=== PATIENT | female | born 1965 | race Caucasian/White ===

== ENCOUNTER → 2016-10-18 | Outpatient (CLI) | payer BC ==
--- NOTE | 2016-10-18 21:04 | WWHP ---
DATE OF SERVICE: 10/18/2016 CHIEF COMPLAINT: Patient is here for her routine gynecologic exam and mammogram. HPI: This is a 51-year-old G3, P3 with an LMP of 2014. The patient states it has been more than 5 years since her last pelvic exam, and about 2 years since her last mammogram. She is without gynecologic complaints and denies any postmenopausal bleeding. She had occasional hot flashes, but are not very bothersome and these are much improved from the past. PAST MEDICAL HISTORY: Diverticulosis. MEDICATIONS: None. ALLERGIES: No known drug allergies. PAST SURGICAL HISTORY: tubal ligation in 1988. Colonoscopy in 2013. Past OB history: Vaginal deliveries x3. 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 SOCIAL HISTORY: She denies tobacco, alcohol, and drug use. 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 FAMILY HISTORY: Aunt had gastric cancer in her 20s and from this. Her mother had an early type of breast cancer. Mother also had diabetes. REVIEW OF SYSTEMS: Weight has been stable. She denies respiratory, cardiac, or GI problems. PHYSICAL EXAM: Blood pressure 144/89. Height 5 feet 5 inches. Weight 216 pounds. Temperature 97.6, pulse 62. This a well-developed, well-nourished white female who is alert and oriented x3 in no acute distress. HEENT is within normal limits. NECK: Supple without mass or thyromegaly. CHEST AND LUNGS: Clear to auscultation. HEART: Regular rate and rhythm. Breasts are without mass or discharge. Axillary exam is negative for adenopathy. BACK: Negative for CVA tenderness. ABDOMEN: Soft, nontender, without palpable masses. PELVIC EXAM: External genitalia reveals mild atrophy without lesions. Cervix and vagina reveal mild atrophy without lesions. Cervix is slightly stenotic. There is no evidence of prolapse. The uterus is midposition, nongravid size and nontender. There are no palpable adnexal masses or tenderness. Rectovaginal exam is negative for mass or tenderness and is negative for occult blood. EXTREMITIES: Nontender. IMPRESSION: A 51-year-old menopausal female with normal gynecologic exam. PLAN: 1. Pap smear was performed. 2. Self-breast examination was discussed. 3. Mammogram will be done today. 4. We have discussed her mildly elevated blood pressure. She will have her blood pressure checked in the near future and will follow up with Dr. Busch for any blood pressure elevations. 5. She will return in one year.
--- NOTE | 2016-10-19 08:21 | MM ---
Reason for exam: screening (asymptomatic). Last mammogram was performed 1 year and 4 months ago. History: Patient is postmenopausal. Family history of breast cancer in mother at age 68. Physical Findings: A clinical breast exam by your physician is recommended on an annual basis and results should be correlated with mammographic findings. MG Screening Mammo w CAD Bilateral CC and MLO view(s) were taken. Prior study comparison: June 16, 2015, mammogram, performed at [facility]. June 05, 2015, mammogram, performed at [facility]. April 04, 2014, mammogram, performed at [facility]. The breast tissue is almost entirely fat. Finding: There are typically benign coarse calcifications in the right breast. There is a chronic nodularity in the left breast. New finding since June 16, 2015, June 05, 2015, and April 04, 2014. ASSESSMENT: Benign, BI-RAD 2 RECOMMENDATION: Routine screening mammogram of both breasts in 1 year.
--- NOTE | 2016-10-25 20:21 | WWPLE ---
October 25, 2016 RE: Curry Phyllis Edilberto Dear Dr. Busch, I had the pleasure seeing your patient Phyllis Zapien in the office on 10/18/16. As you know, she is a 51-year-old menopausal female who presented to me for her routine gynecologic exam. Her gynecologic exam was unremarkable. Pap smear was negative and her mammogram was benign. Thank you for allowing me to participate in the care of your patient. Please do not hesitate to call if you have any questions. Sincerely, Baldev Webb M.D. [place]RIFF[place]
== END ==
LOC: WWCWWP 10:30
PROVIDERS: ATTEND Obstetrics & Gynecology
DX: Z12.31 Encounter for screening mammogram for malignant neoplasm of breast (principal)

== ENCOUNTER 2017-03-06 09:36 | Inpatient (IN) | payer BC ==
[2017-03-06] MEDS ORDERED: SODIUM CHLORIDE 0.9% 1,000 ML IV STA (10:00)
[2017-03-06] MEDS ORDERED: ONDANSETRON 4 MG/2 ML VIAL IVP STA (10:00)
[2017-03-06] MEDS ORDERED: RX INFO: IV CONTRAST WAS GIVEN 1 EACH MISC MISCELLANE PRN (10:00)
[2017-03-06] MEDS ORDERED: MORPHINE SULFATE 2 MG/ML SYRINGE IVP STA (10:00)
--- NOTE | 2017-03-06 10:04 | ED ---
Abdominal Pain HPI - General Source: patient, RN notes reviewed Mode of arrival: ambulatory Limitations: no limitations <Eddie Murphy - Last Filed: 03/06/17 12:07> <Gregorio Zambrano - Last Filed: 03/06/17 12:22> - General Chief Complaint: Abdominal Pain Stated Complaint: abdominal/chest pain, vomiting Time Seen by Provider: 03/06/17 09:54 - History of Present Illness Initial Comments: 51-year-old female presents emergency Department chief complaint abdominal pain. She states it started last night and has progressed until today. She states she has mid to right lower quadrant abdominal pain. Patient states she is now vomiting up which appears to be viral. Patient has a benign past medical history no surgeries. She denies any dysuria, hematuria, diarrhea, constipation, fever, chills, flank pain. She states the pain does radiate up to her left side towards her chest occasionally but states the pain is primarily just in her anterior abdomen region. Patient denies any sick contacts. Patient offers no complaints. (Eddie Murphy) - Related Data Home Medications Medication Instructions Recorded Confirmed Calcium Polycarbophil [Fibercon] 625 mg PO DAILY PRN 03/06/17 03/06/17 Lansoprazole [Prevacid] 15 mg PO DAILY PRN 03/06/17 03/06/17 Allergies Allergy/AdvReac Type Severity Reaction Status Date / Time No Known Allergies Allergy Verified 03/06/17 10:18 Review of Systems ROS Other: All systems not noted in ROS Statement are negative. <Eddie Murphy - Last Filed: 03/06/17 12:07> ROS Other: All systems not noted in ROS Statement are negative. <Gregorio Zambrano - Last Filed: 03/06/17 12:22> ROS Statement: Those systems with pertinent positive or pertinent negative responses have been documented in the HPI. Past Medical History Past Medical History: No Reported History History of Any Multi-Drug Resistant Organisms: None Reported Past Surgical History: Tubal Ligation Past Psychological History: No Psychological Hx Reported Smoking Status: Never smoker Past Alcohol Use History: None Reported Past Drug Use History: None Reported <Eddie Murphy - Last Filed: 03/06/17 12:07> General Exam Limitations: no limitations General appearance: alert, in no apparent distress Neck exam: Present: normal inspection, full ROM. Absent: tenderness, meningismus, lymphadenopathy Respiratory exam: Present: normal lung sounds bilaterally. Absent: respiratory distress, wheezes, rales, rhonchi, stridor Cardiovascular Exam: Present: regular rate, normal rhythm, normal heart sounds. Absent: systolic murmur, diastolic murmur, rubs, gallop, clicks GI/Abdominal exam: Present: soft, tenderness (Moderate mid to right-sided abdominal tenderness), normal bowel sounds. Absent: distended, guarding, rebound, rigid Back exam: Absent: CVA tenderness (R), CVA tenderness (L) Neurological exam: Present: alert, oriented X3, CN II-XII intact Skin exam: Present: warm, dry, intact, normal color. Absent: rash <Eddie Murphy - Last Filed: 03/06/17 12:07> Course <Eddie Murphy - Last Filed: 03/06/17 12:07> <Gregorio Zambrano - Last Filed: 03/06/17 12:22> Vital Signs 03/06/17 03/06/17 09:38 10:24 Temperature 99.9 F H Pulse Rate 76 68 Respiratory 20 15 Rate Blood Pressure 156/80 136/81 O2 Sat by Pulse 97 94 L Oximetry - Reevaluation(s) Reevaluation #1: 03/06/17 12:21 Personal [id number] evaluation the patient did discuss findings with her. Patient had the onset of pain last evening some nausea vomiting pain she localizes lower abdomen especially on the right. She has point tenderness palpation. He has had CAT scan evidence of appendicitis with elevated white count. Patient has seen Dr. Collins in the past Monday to see one of his partners. I discussed the case through an OR nurse with Dr. Simpson. Patient will be admitted. (Gregorio Zambrano) Medical Decision Making - Lab Data Result diagrams: 03/06/17 10:20 03/06/17 10:20 <Eddie Murphy - Last Filed: 03/06/17 12:07> - Lab Data Result diagrams: 03/06/17 10:20 03/06/17 10:20 <Gregorio Zambrano - Last Filed: 03/06/17 12:22> - Lab Data Lab Results 03/06/17 03/06/17 03/06/17 Range/Units 10:20 10:20 10:20 WBC 14.1 H (3.8-10.6) k/uL RBC 4.95 (3.80-5.40) m/uL Hgb 13.9 (11.4-16.0) gm/dL Hct 42.8 (34.0-46.0) % MCV 86.5 (80.0-100.0) fL MCH 28.1 (25.0-35.0) pg MCHC 32.4 (31.0-37.0) g/dL RDW 13.1 (11.5-15.5) % Plt Count 326 (150-450) k/uL Neutrophils % 89 % Lymphocytes % 6 % Monocytes % 4 % Eosinophils % 0 % Basophils % 0 % Neutrophils # 12.6 H (1.3-7.7) k/uL Lymphocytes # 0.8 L (1.0-4.8) k/uL Monocytes # 0.6 (0-1.0) k/uL Eosinophils # 0.0 (0-0.7) k/uL Basophils # 0.0 (0-0.2) k/uL Sodium 140 (137-145) mmol/L Potassium 4.0 (3.5-5.1) mmol/L Chloride 105 (98-107) mmol/L Carbon Dioxide 24 (22-30) mmol/L Anion Gap 11 mmol/L BUN 18 H (7-17) mg/dL Creatinine 0.69 (0.52-1.04) mg/dL Est GFR (MDRD) Af Amer >60 (>60 ml/min/1.73 sqM) Est GFR (MDRD) Non-Af >60 (>60 ml/min/1.73 sqM) Glucose 132 H (74-99) mg/dL Plasma Lactic Acid Ramiro 1.0 (0.7-2.0) mmol/L Calcium 9.4 (8.4-10.2) mg/dL Total Bilirubin 0.8 (0.2-1.3) mg/dL AST 22 (14-36) U/L ALT 33 (9-52) U/L Alkaline Phosphatase 81 (38-126) U/L Troponin I (0.000-0.034) ng/mL Total Protein 7.3 (6.3-8.2) g/dL Albumin 4.2 (3.5-5.0) g/dL Amylase <30 L (30-110) U/L Lipase 51 (23-300) U/L Urine Color Urine Appearance (Clear) Urine pH (5.0-8.0) Ur Specific [place] (1.001-1.035) Urine Protein (Negative) Urine Glucose (UA) (Negative) Urine Ketones (Negative) Urine Blood (Negative) Urine Nitrite (Negative) Urine Bilirubin (Negative) Urine Urobilinogen (<2.0) mg/dL Ur Leukocyte Esterase (Negative) 03/06/17 03/06/17 Range/Units 10:20 11:21 WBC (3.8-10.6) k/uL RBC (3.80-5.40) m/uL Hgb (11.4-16.0) gm/dL Hct (34.0-46.0) % MCV (80.0-100.0) fL MCH (25.0-35.0) pg MCHC (31.0-37.0) g/dL RDW (11.5-15.5) % Plt Count (150-450) k/uL Neutrophils % % Lymphocytes % % Monocytes % % Eosinophils % % Basophils % % Neutrophils # (1.3-7.7) k/uL Lymphocytes # (1.0-4.8) k/uL Monocytes # (0-1.0) k/uL Eosinophils # (0-0.7) k/uL Basophils # (0-0.2) k/uL Sodium (137-145) mmol/L Potassium (3.5-5.1) mmol/L Chloride (98-107) mmol/L Carbon Dioxide (22-30) mmol/L Anion Gap mmol/L BUN (7-17) mg/dL Creatinine (0.52-1.04) mg/dL Est GFR (MDRD) Af Amer (>60 ml/min/1.73 sqM) Est GFR (MDRD) Non-Af (>60 ml/min/1.73 sqM) Glucose (74-99) mg/dL Plasma Lactic Acid Ramiro (0.7-2.0) mmol/L Calcium (8.4-10.2) mg/dL Total Bilirubin (0.2-1.3) mg/dL AST (14-36) U/L ALT (9-52) U/L Alkaline Phosphatase (38-126) U/L Troponin I <0.012 (0.000-0.034) ng/mL Total Protein (6.3-8.2) g/dL Albumin (3.5-5.0) g/dL Amylase (30-110) U/L Lipase (23-300) U/L Urine Color Light Yellow Urine Appearance Clear (Clear) Urine pH 6.5 (5.0-8.0) Ur Specific [place] 1.032 (1.001-1.035) Urine Protein Negative (Negative) Urine Glucose (UA) Negative (Negative) Urine Ketones Negative (Negative) Urine Blood Negative (Negative) Urine Nitrite Negative (Negative) Urine Bilirubin Negative (Negative) Urine Urobilinogen <2.0 (<2.0) mg/dL Ur Leukocyte Esterase Negative (Negative) 03/06/17 10:20 EKG performed at 9:50 normal sinus rhythm with left axis deviation 69 rate OH interval 168 QRS duration 128 QT/QTC 436/467 (Eddie Murphy) Disposition <Eddie Murphy - Last Filed: 03/06/17 12:07> <Gregorio Zambrano - Last Filed: 03/06/17 12:22> Clinical Impression: Acute appendicitis Disposition: ADMITTED IP TO THIS HOSP Condition: Stable Referrals: Phyllis Daniels MD [Primary Care Provider] - 1-2 days
[2017-03-06 10:40] LABS: Basophils % (A) 0 %; CHCM 33.7; Eosinophils % (A) 0 %; HCT 42.8 % (34.0-46.0); HDW 2.36; HGB 13.9 gm/dL (11.4-16.0); Luc # (Auto) 0.07; Luc % (Auto) 1; Lymphocytes # (A) 0.8 k/uL (1.0-4.8); Lymphocytes % (A) 6 %; MCH 28.1 pg (25.0-35.0); MCHC 32.4 g/dL (31.0-37.0); MCV 86.5 fL (80.0-100.0); Mean Platelet Volume 7.3; Monocytes # (A) 0.6 k/uL (0-1.0); Monocytes % (A) 4 %; Neutrophils # (A) 12.6 k/uL (1.3-7.7); Neutrophils % (A) 89 %; RBC 4.95 m/uL (3.80-5.40); RDW 13.1 % (11.5-15.5); WBC 14.1 k/uL (3.8-10.6); WBC (Perox) 14.15
[2017-03-06 10:48] LABS: ALT 33 U/L (9-52); AST 22 U/L (14-36); Alkaline Phosphatase 81 U/L (38-126); Amylase <30 U/L (30-110); Anion Gap 11 mmol/L; Blood Urea Nitrogen 18 mg/dL (7-17); Calcium 9.4 mg/dL (8.4-10.2); Carbon Dioxide 24 mmol/L (22-30); Chloride 105 mmol/L (98-107); Glucose 132 mg/dL (74-99); Non-African American GFR(MDRD) >60 (>60 ml/min/1.73 sqM); Sodium 140 mmol/L (137-145); Total Bilirubin 0.8 mg/dL (0.2-1.3); Total Protein 7.3 g/dL (6.3-8.2)
--- NOTE | 2017-03-06 11:10 | CT ---
EXAMINATION TYPE: CT abdomen pelvis w con DATE OF EXAM: 03/06/2017 COMPARISON: NONE HISTORY: LUQ AND LLQ PAIN, VOMITTING FOR ONE DAY CT DLP: 1636 mGycm Automated exposure control for dose reduction was used. CONTRAST: CT scan of the abdomen pelvis is performed with IV Contrast, patient injected with 100 ML mL of Omnip aque 300. FINDINGS- LUNG BASES-subsegmental linear changes most typical scar or atelectasis at both lung bases. There is a hiatal hernia.. LIVER/GB- No gross abnormality is appreciated. PANCREAS- No gross abnormality is seen. SPLEEN- No gross abnormality is seen. ADRENALS- No gross abnormality is seen. KIDNEYS/BLADDER-4 mm nonobstructing right renal calculus. Hypodense lesion involving the upper pole t he right kidney measures 14 Hounsfield units suggestive of simple cyst. Larger 3 cm lesion involving the left kidney measures 1 Hounsfield units compatible simple cyst. BOWEL-there is a thick walled tubular structure within the right lower quadrant. It has a blind termi nation with mild adjacent inflammatory change. Correlate for appendicitis. LYMPH NODES- No greater than 1cm abdominal or pelvic lymph nodes areappreciated. OSSEOUS STRUCTURES- No significant abnormality is seen. IMPRESSION- 1. Correlate for acute appendicitis. 2. Diverticulosis 3. Nonobstructing renal stone the right measuring 4 mm
[2017-03-06] MEDS ORDERED: PIPERACILLIN-TAZOBACTAM 3.375 GM in DEXTROSE/WATER 1 50ML.BAG IVPB STA (11:25)
[2017-03-06 11:58] LABS: Appearance,Urine Clear (Clear); Bilirubin,Urine Negative (Negative); Glucose,Urine (UA) Negative (Negative); Ketones,Urine Negative (Negative); Leukocyte Esterase,Urine Negative (Negative); Nitrite,Urine Negative (Negative); PH, Urine 6.5 (5.0-8.0); Protein,Urine Negative (Negative); Specific Gravity,Urine 1.032 (1.001-1.035); UA Billing (MACRO vs. MICRO) CHEM; Urobilinogen,Urine <2.0 mg/dL (<2.0)
[2017-03-06] MEDS ORDERED: ONDANSETRON 4 MG/2 ML VIAL IVP PRN (12:08)
[2017-03-06] MEDS ORDERED: MORPHINE SULFATE 4 MG/ML SYRINGE IV PRN (12:08)
[2017-03-06] MEDS ORDERED: NALOXONE 0.4 MG/ML 1 ML VIAL IV PRN (12:08)
[2017-03-06] MEDS: SODIUM CHLORIDE 0.9% 1,000 ML IV SCH (15:34)
[2017-03-07] MEDS: SODIUM CHLORIDE 0.9% 1,000 ML IV SCH (04:21)
--- NOTE | 2017-03-07 07:45 | P.GSHP ---
History of Present Illness H&P Date: 03/06/17 CHIEF COMPLAINT: Right lower quadrant abdominal pain with appendicitis for 1 day. HISTORY OF PRESENT ILLNESS: The patient is a previously healthy 51-year-old female who presents with 1.5 day history of periumbilical with right lower quadrant abdominal pain that started last night. She reports intractable nausea and vomiting hence her presentation to the emergency room. CT of the abdomen and pelvis consistent with acute appendicitis. PAST MEDICAL HISTORY: See list PAST SURGICAL HISTORY: See list CURRENT MEDICATIONS: See list ALLERGIES: NKDA SOCIAL HISTORY: Non-tobacco user. . FAMILY HISTORY: Denies Crohns disease and ulcerative colitis. REVIEW OF ORGAN SYSTEMS: CONSTITUTIONAL: Denies any fever or chills. Denies recent weight loss. HEENT: Denies any trouble with vision, hearing or nosebleeds. No difficulty swallowing. LYMPHATIC: The patient denies any lumps and bumps around the neck. ENDOCRINE: Denies any thyroid disorders. Denies any blood sugar glucose intolerance. RESPIRATORY: Denies shortness of breath including chronic cough. CARDIOVASCULAR: Denies history of chest pain with exertion. GASTROINTESTINAL: Denies regurgitation of bile at night as well as intermittent nausea. No blood in stools. GENITOURINARY: Denies any blood in urine or increased urinary frequency. MUSCULOSKELETAL: Denies current joint arthritis. NEUROLOGIC: Denies any numbness or tingling along the distal extremities. No seizure disorders or headaches. PSYCHIATRIC: Denies any depression or suicidal ideation. HEMATOLOGIC: Denies any abnormal bleeding or bruising. PHYSICAL EXAMINATION: Vital signs: Vital Signs Temp 98.1 F 03/06/17 19:53 Pulse 77 03/06/17 19:53 Resp 20 03/07/17 00:00 BP 115/66 03/06/17 19:53 Pulse Ox 97 03/06/17 19:53 Intake & Output 03/06/17 03/07/17 03/07/17 18:59 06:59 18:59 Intake Total 300 Balance 300 Weight 95.2 kg 95.2 kg Intake: Oral 300 Other: # Voids 1 2 GENERAL: Well developed and in no acute distress. Pleasant. HEENT: No sclera icterus. Extraocular movements grossly intact. Moist buccal mucosa. Head is atraumatic, normocephalic. Hears conversational speech. No nasal drainage. NECK: Supple without lymphadenopathy. No JV distention. CHEST: Non-labored respirations and equal bilateral excursions. CARDIOVASCULAR: Regular rate and rhythm. Palpable 2+ radial pulses. ABDOMEN: Soft, tender at the right lower quadrant. MUSCULOSKELETAL: No clubbing, cyanosis or edema. NEUROLOGIC: No focal or lateralizing signs. PSYCH: Appropriate affect. Alert and oriented to person, place and time. LABS: Laboratory Last Values WBC 14.1 k/uL (3.8-10.6) H 03/06/17 10:20 RBC 4.95 m/uL (3.80-5.40) 03/06/17 10:20 Hgb 13.9 gm/dL (11.4-16.0) 03/06/17 10:20 Hct 42.8 % (34.0-46.0) 03/06/17 10:20 MCV 86.5 fL (80.0-100.0) 03/06/17 10:20 MCH 28.1 pg (25.0-35.0) 03/06/17 10:20 MCHC 32.4 g/dL (31.0-37.0) 03/06/17 10:20 RDW 13.1 % (11.5-15.5) 03/06/17 10:20 Plt Count 326 k/uL (150-450) 03/06/17 10:20 Neutrophils % 89 % 03/06/17 10:20 Lymphocytes % 6 % 03/06/17 10:20 Monocytes % 4 % 03/06/17 10:20 Eosinophils % 0 % 03/06/17 10:20 Basophils % 0 % 03/06/17 10:20 Neutrophils # 12.6 k/uL (1.3-7.7) H 03/06/17 10:20 Lymphocytes # 0.8 k/uL (1.0-4.8) L 03/06/17 10:20 Monocytes # 0.6 k/uL (0-1.0) 03/06/17 10:20 Eosinophils # 0.0 k/uL (0-0.7) 03/06/17 10:20 Basophils # 0.0 k/uL (0-0.2) 03/06/17 10:20 Sodium 140 mmol/L (137-145) 03/06/17 10:20 Potassium 4.0 mmol/L (3.5-5.1) 03/06/17 10:20 Chloride 105 mmol/L (98-107) 03/06/17 10:20 Carbon Dioxide 24 mmol/L (22-30) 03/06/17 10:20 Anion Gap 11 mmol/L 03/06/17 10:20 BUN 18 mg/dL (7-17) H 03/06/17 10:20 Creatinine 0.69 mg/dL (0.52-1.04) 03/06/17 10:20 Est GFR (MDRD) Af Amer >60 (>60 ml/min/1.73 sqM) 03/06/17 10:20 Est GFR (MDRD) Non-Af >60 (>60 ml/min/1.73 sqM) 03/06/17 10:20 Glucose 132 mg/dL (74-99) H 03/06/17 10:20 Plasma Lactic Acid Ramiro 1.0 mmol/L (0.7-2.0) 03/06/17 10:20 Calcium 9.4 mg/dL (8.4-10.2) 03/06/17 10:20 Total Bilirubin 0.8 mg/dL (0.2-1.3) 03/06/17 10:20 AST 22 U/L (14-36) 03/06/17 10:20 ALT 33 U/L (9-52) 03/06/17 10:20 Alkaline Phosphatase 81 U/L (38-126) 03/06/17 10:20 Troponin I <0.012 ng/mL (0.000-0.034) 03/06/17 10:20 Total Protein 7.3 g/dL (6.3-8.2) 03/06/17 10:20 Albumin 4.2 g/dL (3.5-5.0) 03/06/17 10:20 Amylase <30 U/L (30-110) L 03/06/17 10:20 Lipase 51 U/L (23-300) 03/06/17 10:20 Urine Color Light Yellow 03/06/17 11:21 Urine Appearance Clear (Clear) 03/06/17 11:21 Urine pH 6.5 (5.0-8.0) 03/06/17 11:21 Ur Specific [place] 1.032 (1.001-1.035) 03/06/17 11:21 Urine Protein Negative (Negative) 03/06/17 11:21 Urine Glucose (UA) Negative (Negative) 03/06/17 11:21 Urine Ketones Negative (Negative) 03/06/17 11:21 Urine Blood Negative (Negative) 03/06/17 11:21 Urine Nitrite Negative (Negative) 03/06/17 11:21 Urine Bilirubin Negative (Negative) 03/06/17 11:21 Urine Urobilinogen <2.0 mg/dL (<2.0) 03/06/17 11:21 Ur Leukocyte Esterase Negative (Negative) 03/06/17 11:21 Urine HCG, Qual Not Detected (Not Detectd) 03/06/17 11:21 STUDIES: CT of the abdomen and pelvis reviewed with findings consistent with appendicitis. ASSESSMENT: 1. Right lower quadrant pain. 2. Appendicitis. 3. Leukocytosis. PLAN: 1. I have discussed benefits and risks of laparoscopic appendectomy. 2. Antiemetics to avoid postop nausea or vomiting. 3. Antibiotics, Unasyn 4. DVT prophylaxis with heparin. 5. GI prophylaxis. 6. Off work restrictions and recovery anticipated for 1 to 2 weeks. Thank you very much for allowing me to participate in the care of your patient. Past Medical History Past Medical History: GERD/Reflux, Pneumonia, Renal Disease Additional Past Medical History / Comment(s): Pneumonia/intubated and vented, diverticular dx, hiatal hernia, arthritis bilateral knees, nephrolithiasis-pt passed stones on her own. History of Any Multi-Drug Resistant Organisms: None Reported Past Surgical History: Orthopedic Surgery, Tubal Ligation Additional Past Surgical History / Comment(s): R knee arthroscopy, EGD/ colonoscopy Past Anesthesia/Blood Transfusion Reactions: No Reported Reaction Smoking Status: Never smoker - Past Family History Father Family Medical History: COPD, Coronary Artery Disease (CAD) Additional Family Medical History / Comment(s): Father in his mid 60's Mother Family Medical History: Cancer, Diabetes Mellitus Additional Family Medical History / Comment(s): Mother had skin and breast cancer. Medications and Allergies Home Medications Medication Instructions Recorded Confirmed Type Calcium Polycarbophil [Fibercon] 625 mg PO DAILY PRN 03/06/17 03/06/17 History Lansoprazole [Prevacid] 15 mg PO DAILY PRN 03/06/17 03/06/17 History Allergies Allergy/AdvReac Type Severity Reaction Status Date / Time No Known Allergies Allergy Verified 03/06/17 10:18 Surgical - Exam Vital Signs Temp Pulse Resp BP Pulse Ox 99.9 F H 76 20 156/80 97 03/06/17 09:38 03/06/17 09:38 03/06/17 09:38 03/06/17 09:38 03/06/17 09:38 Results - Labs 03/06/17 10:20 03/06/17 10:20 Abnormal Lab Results - Last 24 Hours (Table) 03/06/17 03/06/17 Range/Units 10:20 10:20 WBC 14.1 H (3.8-10.6) k/uL Neutrophils # 12.6 H (1.3-7.7) k/uL Lymphocytes # 0.8 L (1.0-4.8) k/uL BUN 18 H (7-17) mg/dL Glucose 132 H (74-99) mg/dL Amylase <30 L (30-110) U/L Diabetes panel 03/06/17 Range/Units 10:20 Sodium 140 (137-145) mmol/L Potassium 4.0 (3.5-5.1) mmol/L Chloride 105 (98-107) mmol/L Carbon Dioxide 24 (22-30) mmol/L BUN 18 H (7-17) mg/dL Creatinine 0.69 (0.52-1.04) mg/dL Glucose 132 H (74-99) mg/dL Calcium 9.4 (8.4-10.2) mg/dL AST 22 (14-36) U/L ALT 33 (9-52) U/L Alkaline Phosphatase 81 (38-126) U/L Total Protein 7.3 (6.3-8.2) g/dL Albumin 4.2 (3.5-5.0) g/dL Calcium panel 03/06/17 Range/Units 10:20 Calcium 9.4 (8.4-10.2) mg/dL Albumin 4.2 (3.5-5.0) g/dL Pituitary panel 03/06/17 Range/Units 10:20 Sodium 140 (137-145) mmol/L Potassium 4.0 (3.5-5.1) mmol/L Chloride 105 (98-107) mmol/L Carbon Dioxide 24 (22-30) mmol/L BUN 18 H (7-17) mg/dL Creatinine 0.69 (0.52-1.04) mg/dL Glucose 132 H (74-99) mg/dL Calcium 9.4 (8.4-10.2) mg/dL Adrenal panel 03/06/17 Range/Units 10:20 Sodium 140 (137-145) mmol/L Potassium 4.0 (3.5-5.1) mmol/L Chloride 105 (98-107) mmol/L Carbon Dioxide 24 (22-30) mmol/L BUN 18 H (7-17) mg/dL Creatinine 0.69 (0.52-1.04) mg/dL Glucose 132 H (74-99) mg/dL Calcium 9.4 (8.4-10.2) mg/dL Total Bilirubin 0.8 (0.2-1.3) mg/dL AST 22 (14-36) U/L ALT 33 (9-52) U/L Alkaline Phosphatase 81 (38-126) U/L Total Protein 7.3 (6.3-8.2) g/dL Albumin 4.2 (3.5-5.0) g/dL
--- NOTE | 2017-03-07 07:46 | P.HPADDEND ---
H&P Addendum H&P Addendum Date: 03/07/17 Patient comes in with history of acute appendicitis. We'll proceed with laparoscopic appendectomy today.
[2017-03-07] MEDS ORDERED: IV FLUID CONTINUATION 1,000 ML IV ONE (11:30)
[2017-03-07] MEDS ORDERED: HEPARIN SODIUM,PORCINE 5,000 UNIT/ML 1 ML VIAL SQ ONE (11:54)
[2017-03-07] MEDS ORDERED: ONDANSETRON 4 MG/2 ML VIAL IVP ONE (11:55)
[2017-03-07] MEDS ORDERED: DEXAMETHASONE SOD PHOSPHATE 10 MG/ML 1 ML VIAL IV ONE (11:56)
[2017-03-07] MEDS ORDERED: fentaNYL (PF) 50 MCG/ML 2 ML AMP ONE (13:59)
[2017-03-07] MEDS ORDERED: GLYCOPYRROLATE 0.2 MG/ML 2 ML VIAL ONE (13:59)
[2017-03-07] MEDS ORDERED: SUCCINYLCHOLINE CHLORIDE 100 MG/5 ML SYR IV ONE (13:59)
[2017-03-07] MEDS ORDERED: ONDANSETRON 4 MG/2 ML VIAL ONE (13:59)
[2017-03-07] MEDS ORDERED: ROCURONIUM BROMIDE 10 MG/ML 10 ML VIAL IV ONE (13:59)
[2017-03-07] MEDS ORDERED: PROPOFOL 10 MG/ML 20 ML VIAL IV ONE (13:59)
[2017-03-07] MEDS ORDERED: NEOSTIGMINE 1 MG/ML 10 ML VIAL ONE (13:59)
[2017-03-07] MEDS ORDERED: MIDAZOLAM 2 MG/2 ML VIAL ONE (13:59)
[2017-03-07] MEDS ORDERED: BUPIVACAIN-EPI 0.25%-1:200,000 30 ML VIAL SQ ONE (14:01)
[2017-03-07] MEDS ORDERED: LACTATED RINGERS 1,000 ML IV ONE (14:08)
[2017-03-07] MEDS: HYDROmorphone 1 MG/ML 1 ML SYRINGE IVP ONE ×2 (14:51→14:56)
--- NOTE | 2017-03-07 14:55 | P.PCN ---
Date of Procedure: 03/07/17 Preoperative Diagnosis: Acute appendicitis Postoperative Diagnosis: Acute appendicitis Procedure(s) Performed: Laparoscopic appendectomy Implants: Anesthesia: GETA, local Surgeon: Brittni Nguyen Estimated Blood Loss (ml): 5 Pathology: other (Acute appendicitis) Condition: stable Disposition: floor Indications for Procedure: Operative Findings: Nonperforated acute appendicitis with periappendicitis. Description of Procedure:
[2017-03-07] MEDS: MEPERIDINE 50 MG/ML SYRINGE IVP ONE ×2 (14:59→15:07)
[2017-03-07] MEDS ORDERED: KETOROLAC 30 MG/ML 1 ML VIAL IVP ONE (15:07)
[2017-03-07] MEDS ORDERED: HYDROmorphone 1 MG/ML 1 ML SYRINGE IVP ONE (15:16)
[2017-03-07] MEDS: PIPERACILLIN-TAZOBACTAM 3.375 GM in DEXTROSE/WATER 1 50ML.BAG IVPB SCH ×2 (16:15→23:56)
[2017-03-07] MEDS: HYDROcodone/APAP 5-325MG 1 EACH TAB PO PRN (20:49)
[2017-03-08 06:05] LABS: Basophils % (A) 0 %; CH 28.7; CHCM 33.2; Eosinophils % (A) 0 %; HCT 33.6 % (34.0-46.0); HDW 2.37; HGB 11.4 gm/dL (11.4-16.0); Luc # (Auto) 0.13; Luc % (Auto) 1; Lymphocytes # (A) 1.4 k/uL (1.0-4.8); Lymphocytes % (A) 15 %; MCH 29.5 pg (25.0-35.0); MCV 86.9 fL (80.0-100.0); Mean Platelet Volume 7.8; Monocytes # (A) 0.5 k/uL (0-1.0); Monocytes % (A) 5 %; Neutrophils # (A) 7.4 k/uL (1.3-7.7); Neutrophils % (A) 78 %; RBC 3.87 m/uL (3.80-5.40); WBC 9.4 k/uL (3.8-10.6)
[2017-03-08] MEDS: SODIUM CHLORIDE 0.9% 1,000 ML IV SCH (06:44)
[2017-03-08] MEDS: PIPERACILLIN-TAZOBACTAM 3.375 GM in DEXTROSE/WATER 1 50ML.BAG IVPB SCH (08:11)
[2017-03-08] MEDS: HYDROcodone/APAP 5-325MG 1 EACH TAB PO PRN ×2 (08:21→11:35)
[2017-03-08] MEDS ORDERED: PANTOPRAZOLE 40 MG/10 ML VIAL IV SCH (09:00)
[2017-03-08 10:06] VITALS: BP 113/60; PULSE 61; RESP 16; TEMP 97.1
--- NOTE | 2017-03-08 14:17 | P.DS ---
Providers Date of admission: 03/06/17 13:19 Expected date of discharge: 03/08/17 Attending physician: Brittni Nguyen [facility] 51-year-old female presented to the emergency room with a chief complaint of developing right lower quadrant abdominal pain a day and a half ago. Patient had pain in the Umbilical area radiating to the right lower quadrant. Patient stated it was associated with intractable nausea vomiting and inability to keep fluids down. Patient came into the emergency room to be evaluated for the above-mentioned symptoms. CAT scan of the abdomen pelvis was consistent with acute appendicitis. Dr. Simpson did discuss the benefits and risk of proceeding with a surgical approach to address the acute appendicitis the patient elected to proceed on March 07 did undergo laparoscopic appendectomy for acute appendicitis Postprocedure patient did develop on the right shoulder area a firm slightly swollen cyst no redness around the site tenderness in the center patient states she has had no prior cyst applying heat to the area did help was no break in skin integrity Impression discharge diagnosis Present on admission right lower quadrant abdominal pain suspect due to acute appendicitis Present on admission intractable nausea vomiting right lower quadrant pain suspect due to acute appendicitis postop laparoscopic appendectomy nonperforated done on 03/07/2017 Nonperforated acute appendicitis with periappendicitis. The above dictated assessment and findings were discussed with dr Nguyen. Impression and the plan of care have been dictated as directed. Yessy Marte nurse practitioner acting as a scribe for Dr. Nguyen Patient Condition at Discharge: Stable Plan - Discharge Summary New Discharge Prescriptions: New Ibuprofen [Motrin] 200 mg PO Q6HR PRN #30 tab PRN Reason: Mild To Moderate Pain Acetaminophen Tab [Tylenol Tab] 650 mg PO Q4H #30 tablet Continue Lansoprazole [Prevacid] 15 mg PO DAILY PRN PRN Reason: GERD Calcium Polycarbophil [Fibercon] 625 mg PO DAILY PRN PRN Reason: Constipation Discharge Medication List Calcium Polycarbophil [Fibercon] 625 mg PO DAILY PRN 03/06/17 [History] Lansoprazole [Prevacid] 15 mg PO DAILY PRN 03/06/17 [History] Acetaminophen Tab [Tylenol Tab] 650 mg PO Q4H #30 tablet 03/08/17 [Rx] Ibuprofen [Motrin] 200 mg PO Q6HR PRN #30 tab 03/08/17 [Rx] Follow up Appointment(s)/Referral(s): Brittni Nguyen MD [STAFF PHYSICIAN] - 03/09/17 4:30 pm Phyllis Daniels MD [Primary Care Provider] - 1-2 days Activity/Diet/Wound Care/Special Instructions: No lifting over 10 pounds Off work restriction and recovery anticipated 1-2 weeks Discharge Disposition: HOME SELF-CARE
--- NOTE | 2017-03-20 14:54 | P.OP ---
Date of Procedure: 03/07/17 Preoperative Diagnosis: Postoperative Diagnosis: Procedure(s) Performed: Implants: Indications for Procedure: Operative Findings: Description of Procedure: SURGEON: MARCELL CHAVARRIA MD SIMULATION ANALYST: None. PREOPERATIVE DIAGNOSES: 1. Right lower quadrant abdominal pain. 2. Acute appendicitis. 3. Gastroesophageal reflux disease. 4. Leukocytosis. 5. Morbid obesity due to excess calories. 6. Body mass index 34.9. POSTOPERATIVE DIAGNOSES: 1. Right lower quadrant abdominal pain. 2. Acute appendicitis without rupture. 3. Gastroesophageal reflux disease. 4. Leukocytosis. 5. Morbid obesity due to excess calories. 6. Body mass index 34.9. PROCEDURES PERFORMED: 1. Diagnostic laparoscopy. 2. Laparoscopic appendectomy. ANESTHESIA: General with 30 mL 0.25% Marcaine with epinephrine. ESTIMATED BLOOD LOSS: 5 mL. SPECIMENS REMOVED: Appendix. COMPLICATIONS: None. OPERATIVE FINDINGS: 1. Nonperforated acute appendicitis with periappendicitis. 2. Cecum unremarkable. 3. Small bowel unremarkable. INDICATIONS: The patient is a 51-year-old female who presents with over 24-hour history of right lower quadrant abdominal pain. She reported nausea, including anorexia. CT of the abdomen and pelvis was obtained demonstrating findings consistent with acute appendicitis. Benefits and risks, including possibility of open technique were described at length. Informed consent was obtained. DESCRIPTION OR PROCEDURE: Patient was brought to the operating room, laid in supine position. After general induction, the abdomen was prepped and draped in standard sterile fashion. Prior to incision, a timeout protocol was confirmed with surgical team regarding patient's name including procedure to be performed. Preoperative medications were given intraoperatively. Additionally, bilateral SCDs including heparin 5000 units was administered. A transverse infraumbilical incision was made after localizing the skin with anesthetic. A 0 degree 12 mm laparoscopic trocar entry was performed and entered into the peritoneal cavity. The abdomen was insufflated to 15 mmHg of pressure, which she tolerated well. Diagnostic laparoscopy demonstrated no injury to bowel, viscera or mesentery. A 5 mm port was placed just above the pubis. A separate 5 mm port was placed at the left lower quadrant all under direct visualization. The patient was placed in Trendelenburg position with the right side up. A systematic view within the abdominal cavity was started with the small bowel which was unremarkable. The gallbladder was unremarkable. The base of the cecum was without inflammation. The proximal appendix was dilated consistent with acute appendicitis including periappendicitis. No inguinal hernias were identified. A 60 mm Endo CRISTINA echelon stapler was fired across using a ramsey vascular load. The staple line was completely hemostatic. The specimen was removed from the abdominal cavity with a Endo Catch bag through the 12 mm trocar. All instruments and pneumoperitoneum were evacuated from the abdominal cavity. The fascial defect was reapproximated using 0 Vicryl in a figure-of-8 fashion. A total of 30 mL 0.25% Marcaine with epinephrine was infiltrated in all wounds for postop analgesia. Dermabond was applied to the skin after reapproximating the incisions with 4-0 Monocryl as described. At the end of the procedure, needle, sponge, and instrument count was verified correct by rn neurosurgical. The patient had tolerated the procedure well, was taken to the postanesthesia care unit in stable condition.
== END 2017-03-08 14:42 | disposition home or self-care (01) | DRG 343 ==
LOC: EC 09:36 → 6PED 13:19
PROVIDERS: ADMIT Surgery Plastic and Reconstructive Surgery; ATTEND Surgery Plastic and Reconstructive Surgery
PROC: 0DTJ4ZZ Resection of Appendix, Percutaneous Endoscopic Approach (ICD-10-PCS; principal; 2017-03-06)
DX: K35.80 Unspecified acute appendicitis (principal); E66.01 Morbid (severe) obesity due to excess calories; K21.9 Gastro-esophageal reflux disease without esophagitis; K44.9 Diaphragmatic hernia without obstruction or gangrene; M17.0 Bilateral primary osteoarthritis of knee; Z68.34 Body mass index [BMI] 34.0-34.9, adult; Z87.442 Personal history of urinary calculi
CPT/HCPCS: 36415; 74177; 80053; 81003; 81025; 82150; 83605; 83690; 84484; 85025; 87040; 88304; 93005; 96361; 96365; 96366; 96375; 99285

== ENCOUNTER → 2018-11-29 | Outpatient (CLI) | payer BC ==
--- NOTE | 2018-11-30 10:00 | MM ---
Reason for exam: screening (asymptomatic). Last mammogram was performed 2 years and 1 month ago. History: Patient is postmenopausal. Family history of breast cancer in mother at age 68. Physical Findings: A clinical breast exam by your physician is recommended on an annual basis and results should be correlated with mammographic findings. MG Screening Mammo w CAD Bilateral CC and MLO view(s) were taken. Prior study comparison: October 18, 2016, bilateral MG screening mammo w CAD. June 16, 2015, mammogram, performed at [facility]. There are scattered fibroglandular densities. No significant changes when compared with prior studies. ASSESSMENT: Benign, BI-RAD 2 RECOMMENDATION: Routine screening mammogram of both breasts in 1 year.
== END ==
LOC: RADMAMWWP 10:55
PROVIDERS: ATTEND Family Medicine
DX: Z12.31 Encounter for screening mammogram for malignant neoplasm of breast (principal)
CPT/HCPCS: 77067

== ENCOUNTER → 2018-12-26 | Outpatient (CLI) | payer BC | END | disposition home or self-care (01) | LOC: LABPAT 12:16 | PROVIDERS: ATTEND Orthopaedic Surgery | DX: Z01.812 Encounter for preprocedural laboratory examination (principal) | CPT/HCPCS: 87070 ==

== ENCOUNTER → 2019-01-08 | Outpatient (CLI) | payer BC ==
[~2019-01-08] MED LIST: REGADENOSON 0.4 MG/5 ML SYRINGE IV ONE
--- NOTE | 2019-01-08 12:45 | NM ---
EXAMINATION TYPE: NM stress lexiscan cardiolite DATE OF EXAM: 01/08/2019 COMPARISON: NONE HISTORY: Precordial chest pain and abnormal EKG TECHNIQUE: After the intravenous administration of 10.02 mCi Tc 99m Sestamibi - Cardiolite resting S PECT images acquired 55 minutes post injection. The patient received 0.4mg Lexiscan, 25.9 mCi Tc 99m Sestamibi - Stress images obtained [address] injection FINDINGS: Review of stress and rest SPECT images demonstrates fixed defect anteroseptal wall. The other appears to be decreased perfusion on stress images involving the anteroapical wall which may reflect a degre e of stress-induced ischemia. Gated analysis shows normal wall motion with an estimated left ventricu lar ejection fraction of 58 %. IMPRESSION: Moderate sized area of fixed defect involving the anteroseptal wall. There appears to be a small area of decreased perfusion on the stress images involving the anteroapical wall. Stress-induced ischemia is not excluded.
--- NOTE | 2019-01-08 14:04 | EST ---
EXERCISE STRESS AGE: 53 SEX: F HT: 5'5" WT: 195 PROTOCOL: Lexiscan Cardiolite Stress Test HEART RATE REST: 68 BLOOD PRESSURE REST: 118/70 MAXIMUM HEART RATE ACHIEVED: 87 MAXIMUM BLOOD PRESSURE: 125/78 INDICATIONS: Preoperative CLINICAL INFORMATION: Baseline EKG revealed normal sinus rhythm with leftward axis and poor R-wave progression over precordial leads. Borderline IVCD was noted. With Lexiscan administration, heart rate changed from 68 to 87 beats per minute, blood pressure changed from 118/70 to 125/78. EKG did not reveal any new ST-segment changes to indicate ischemia. By EKG criteria, this is an unremarkable Lexiscan stress test with minor resting EKG changes. The nuclear scan results which are more pertinent will be reported by the radiologist. DONALD / OZZIE: [id number] /
== END | disposition home or self-care (01) ==
LOC: RADNMMAIN 08:31
PROVIDERS: ATTEND Family Medicine
DX: Z01.818 Encounter for other preprocedural examination (principal); R94.39 Abnormal result of other cardiovascular function study
CPT/HCPCS: 93017; 78452; A9500; J2785

== ENCOUNTER → 2019-01-18 | Outpatient (CLI) | payer BC ==
[2019-01-18 13:40] LABS: Basophils # (A) 0.1 k/uL (0-0.2); Basophils % (A) 1 %; Eosinophils # (A) 0.1 k/uL (0-0.7); Eosinophils % (A) 2 %; HCT 43.7 % (34.0-46.0); HGB 13.7 gm/dL (11.4-16.0); Lymphocytes # (A) 1.4 k/uL (1.0-4.8); Lymphocytes % (A) 27 %; MCH 27.4 pg (25.0-35.0); MCHC 31.4 g/dL (31.0-37.0); MCV 87.1 fL (80.0-100.0); Mean Platelet Volume 6.9; Monocytes # (A) 0.3 k/uL (0-1.0); Monocytes % (A) 6 %; Neutrophils # (A) 3.1 k/uL (1.3-7.7); Neutrophils % (A) 61 %; Platelet Count 355 k/uL (150-450); RBC 5.01 m/uL (3.80-5.40); RDW 13.2 % (11.5-15.5); WBC 5.1 k/uL (3.8-10.6)
[2019-01-18 13:49] LABS: Prothrombin Time 10.7 sec (9.0-12.0)
[2019-01-18 13:52] LABS: Potassium 4.4 mmol/L (3.5-5.1)
== END ==
LOC: LABPAT 12:18
PROVIDERS: ATTEND Orthopaedic Surgery
DX: Z01.812 Encounter for preprocedural laboratory examination (principal); M17.11 Unilateral primary osteoarthritis, right knee
CPT/HCPCS: 36415; 80051; 85025; 85610

== ENCOUNTER 2019-01-21 05:57 | Day surgery (SDC) | payer BC ==
[2019-01-14 14:09] VITALS: BMI 32.4
--- NOTE | 2019-01-20 17:08 | HP ---
HISTORY AND PHYSICAL REASON FOR ADMISSION: Surgery scheduled for 01/21/2019 HISTORY OF PRESENT ILLNESS: Phyllis Zapien is a 53-year-old patient seen with symptomatic right knee osteoarthritis. We discussed options for treatment. She elected to proceed with right total knee arthroplasty. Consent was obtained. Medical clearance was provided by Dr. Busch. PAST MEDICAL HISTORY: Noncontributory. PAST SURGICAL HISTORY: Tubal ligation. DAILY MEDICATIONS: Ibuprofen. ALLERGIES: None reported. SOCIAL HISTORY: She denies tobacco use. PHYSICAL EXAMINATION: Evaluation of the right knee range of motion is -2/3 to 120 degrees. There is tenderness along the medial joint line. Crepitus medial patellofemoral compartments with range of motion. Pain with patellofemoral compression. Ligaments stable. Hip rotation without pain. Distal neurovascular exam intact. RADIOGRAPHS: Radiographs of the right knee reveal severe medial and moderate patellofemoral compartment osteoarthritis. IMPRESSION: Right knee osteoarthritis. PLAN: Right total knee arthroplasty. Surgery is scheduled for 01/21/2019. MMODL / IJN: [id number] /
[~2019-01-21 05:57] MED LIST changes: +ACETAMINOPHEN TAB 500 MG TAB PO ONE; +MELOXICAM 7.5 MG TAB PO ONE; -REGADENOSON 0.4 MG/5 ML SYRINGE IV ONE; +TRANEXAMIC ACID 1,000 MG in SODIUM CHLORIDE 0.9% 100 ML IVPB ONE; +ceFAZolin IN SWFI 2 GM/20 ML SYRINGE IVP ONE
[2019-01-21] MEDS ORDERED: MIDAZOLAM 2 MG/2 ML VIAL IV PRN (06:04)
[2019-01-21] MEDS ORDERED: DEXAMETHASONE SOD PHOSPHATE 10 MG/ML 1 ML VIAL IV ONE (06:04)
[2019-01-21] MEDS ORDERED: ONDANSETRON 4 MG/2 ML VIAL IVP ONE ×2 (06:04→10:15)
[2019-01-21] MEDS ORDERED: LACTATED RINGERS 1,000 ML IV SCH ×2 (06:04→09:45)
[2019-01-21] MEDS ORDERED: LIDOCAINE 1% 20 ML VIAL (10MG/ML) FOR IV START INTRADERMA PRN (06:04)
[2019-01-21] MEDS ORDERED: NEOSTIGMINE 1 MG/ML 10 ML VIAL ONE (07:25)
[2019-01-21] MEDS ORDERED: MIDAZOLAM 2 MG/2 ML VIAL ONE (07:25)
[2019-01-21] MEDS ORDERED: SUCCINYLCHOLINE CHLORIDE 100 MG/5 ML SYR IV ONE (07:25)
[2019-01-21] MEDS ORDERED: PROPOFOL 10 MG/ML 20 ML VIAL IV ONE (07:25)
[2019-01-21] MEDS ORDERED: SODIUM CHLORIDE 0.9% 100 ML BAG ONE (07:25)
[2019-01-21] MEDS ORDERED: LIDOCAINE 1% INJ 10MG/ML (20 ML MDV) ONE (07:25)
[2019-01-21] MEDS ORDERED: GLYCOPYRROLATE 0.2 MG/ML 2 ML VIAL ONE (07:25)
[2019-01-21] MEDS ORDERED: TRANEXAMIC ACID 1,000 MG/10 ML VIAL ONE (07:25)
[2019-01-21] MEDS ORDERED: fentaNYL (PF) 50 MCG/ML 2 ML AMP ONE (07:25)
[2019-01-21] MEDS ORDERED: ROCURONIUM BROMIDE 10 MG/ML 10 ML VIAL IV ONE (07:25)
[2019-01-21] MEDS ORDERED: ROPIVACAINE 246.25 MG, EPINEPHrine 0.5 MG, KETOROLAC 30 MG, cloNIDine HCL/PF 80 MCG, WA... MISCELLANE ONE ×5 (07:28)
[2019-01-21] MEDS ORDERED: ceFAZolin 1,000 MG in SODIUM CHLORIDE 0.9% 1,000 ML IRRIGATION ONE (07:59)
[2019-01-21] MEDS ORDERED: LACTATED RINGERS 1,000 ML IV ONE (08:31)
--- NOTE | 2019-01-21 09:26 | P.OP ---
Date of Procedure: 01/21/19 Preoperative Diagnosis: Right knee osteoarthritis Postoperative Diagnosis: Same Procedure(s) Performed: Right total knee arthroplasty Implants: 1. Microport evolution size 4 right primary cemented femur 2. Microport evolution MP size 5 right cemented tibial baseplate 3. Microport evolution MP CS size 5 right 17 mm polyethylene tibial insert 4. Microport advance all polyethylene 35 mm cemented patella Anesthesia: GETA, regional (Adductor canal catheter), local Surgeon: Siva Fountain Tagman #1: Jose Alvarez Estimated Blood Loss (ml): 50 Pathology: other (Bone) Condition: stable Disposition: PACU Indications for Procedure: 53-year-old patient seen with symptomatic right knee osteoarthritis. After having treatment options discussed, she elected to proceed with total knee arthroplasty. Operative Findings: see description of procedure Description of Procedure: Patient was taken to the operative suite after having an adductor canal catheter placed by the department of anesthesia for postoperative pain management. Patient underwent a general anesthetic by the department of anesthesia. Patient was given preoperative IV intake antibiotics and TXA. A well-padded tourniquet was placed about the right lower extremity. The lower extremity was then prepped and draped in the normal sterile orthopedic fashion. The extremity was elevated, a tourniquet was insufflated to 300. A standard anterior incision was made sharply through skin. Dissection was taken down through the subcutaneous soft tissues down to the extensor mechanism. A medial arthrotomy was performed, patella was everted and knee was flexed. There was advanced osteoarthritis noted. I introduced my distal intramedullary femoral drill. I then introduced the distal femoral cutting jig. Torrey HUNTER secured the cutting jig with 2 pins. I held retractors in position while Torrey HUNTER performed the distal femoral resection through the guide area we now removed her distal femoral cutting guide. We now placed our 4-in-1 femoral cutting block and positioned and it was secured with 2 pins by Torrey HUNTER while I held the block in position. The distal femoral finishing was now completed. A proximal tibial cutting guide was positioned. I held the guide in the appropriate position with both hands well Torrey HUNTER inserted stabilizing pins into the guide. Proxi mal tibial cut was made. We now placed a trial femoral component into position, along with an appropriate size tibial tray and insert. We now took the knee through range of motion and had full extension good flexion and good overall soft tissue balance noted. The patella was everted and stabilized with 2 towel clips held by Torrey HUNTER while I performed a flush with patellar quad tendon utilizing a fresh sawblade. We templated the patella, appropriate drill holes were made. An appropriate trial patella was positioned, knee was taken through full range of motion with the patella tracking very nicely. The trial patella was removed. Drill holes were made through the femoral component. All trial components were removed after marking off the appropriate rotation of the tibia. Retractors were now positioned along the proximal tibia. An appropriate keel punch was made with the appropriate size tibial guide by myself on Torrey HUNTER assisted by holding retractors. At this point appropriate size implants were chosen and opened. The joint was irrigated copiously with pulse lavage mechanical irrigation. The posterior capsule was infiltrated with local analgesic. The wound was irrigated with pulse lavage mechanical irrigation. We mixed antibiotic methylmethacrylate. We placed the knee into flexion. We placed multiple retractors assisted by Torrey HUNTER to expose the proximal tibia. Once the methyl methacrylate was ready, the tibial component was cemented into place removing any excess methylmethacrylate form by both myself and Torrey HUNTER. The femoral component was cemented into place removing the removing any excess methylmethacrylate performed by both myself and Torrey HUNTER. We then inserted the appropriate size polyethylene tibial insert. We made sure that it was locked into position. We took the knee into full extension, and then back in a flexion making sure we had removed any excess methylmethacrylate. The patellar component was then cemented down and secured with clamp. Excess methylmethacrylate removed. We kept the knee in full extension, patellar clamp in position until methylmethacrylate had hardened. Once it had hardened the patellar clamp was removed. The knee was taken through full range of motion. The patella tracked nicely. There was good soft tissue balancing. The tourniquet was now released. Additional hemostasis was achieved via electrocautery. A second gram of TXA was given. The wound again was irrigated with pulse lavage mechanical irrigation. The superficial soft tissues were infiltrated local analgesic. The extensor mechanism was repaired with Vicryl. We checked the repair with range of motion and it was stable. The subcutaneous soft tissues were repaired with Vicryl in layers. The skin was approximated with pernio/Dermabond. Sterile dressings were applied followed by loose web roll and Jan bandage. The patient was transferred to a bed, and taken to recovery in stable and satisfactory condition. Torrey HUNTER assisted with this complex procedure.
[2019-01-21] MEDS ORDERED: HYDROmorphone 0.5 MG/0.5 ML SYRINGE IVP PRN ×2 (09:32)
[2019-01-21] MEDS ORDERED: ONDANSETRON 4 MG/2 ML VIAL IVP PRN (09:32)
[2019-01-21] MEDS ORDERED: HYDROmorphone 1 MG/ML 1 ML SYRINGE IVP PRN (09:32)
[2019-01-21] MEDS ORDERED: HYDROcodone/APAP 7.5-325MG 1 EACH TAB PO PRN (09:32)
[2019-01-21] MEDS ORDERED: HYDROcodone/APAP 5-325MG 1 EACH TAB PO PRN (09:32)
[2019-01-21] MEDS ORDERED: NALOXONE 0.4 MG/ML 1 ML VIAL IV PRN (09:32)
[2019-01-21] MEDS: fentaNYL (PF) 50 MCG/ML 2 ML AMP IV PRN ×2 (09:45→09:50)
[2019-01-21] MEDS ORDERED: ROPIVACAINE 1,100 MG, SODIUM CHLORIDE 0.9% 500 ML 330 ML MISCELLANE PRN ×2 (09:57)
[2019-01-21 09:58] VITALS: TEMP 97.1
[2019-01-21] MEDS: HYDROmorphone 1 MG/ML 1 ML SYRINGE IVP ONE ×4 (10:00→10:30)
--- NOTE | 2019-01-21 10:04 | XR ---
EXAMINATION TYPE: XR knee limited RT DATE OF EXAM: 01/21/2019 CLINICAL HISTORY: Postoperative evaluation Two views of the right knee are submitted. Identified are changes of total knee arthroplasty with femoral and tibial components appearing well seated. Postsurgical soft tissue changes are noted. Alignment is anatomic.
[2019-01-21] MEDS ORDERED: HYDROcodone/APAP 7.5-325MG 1 EACH TAB PO ONE (13:19)
[2019-01-21] MEDS ORDERED: ceFAZolin IN SWFI 2 GM/20 ML SYRINGE IVP ONE (13:30)
[2019-01-21 14:22] VITALS: RESP 16
[2019-01-21 15:45] VITALS: BP 109/68; PULSE 73
== END 2019-01-21 16:17 | disposition home health service (06) ==
LOC: OR 05:57
PROVIDERS: ATTEND Orthopaedic Surgery
DX: M17.11 Unilateral primary osteoarthritis, right knee (principal); K21.9 Gastro-esophageal reflux disease without esophagitis; Z87.442 Personal history of urinary calculi; Z79.1 Long term (current) use of non-steroidal anti-inflammatories (NSAID); Z79.899 Other long term (current) drug therapy
CPT/HCPCS: 27447; 97116; 97161; 88300; 73560; C1776; C1713; C1772; J2250; J0171; J1100; J2710; J2405; J0690 ×2; J2001; J3010; J1885; J1170; J2795; J0330; J2704; J0735

== ENCOUNTER 2019-02-21 06:31 | Day surgery (SDC) | payer BC ==
[2019-02-18 12:04] VITALS: BMI 32.4
[~2019-02-21 06:31] MED LIST changes: -ACETAMINOPHEN TAB 500 MG TAB PO ONE; +DEXAMETHASONE SOD PHOSPHATE 10 MG/ML 1 ML VIAL IV ONE; +HYDROmorphone 0.5 MG/0.5 ML SYRINGE IVP PRN; +LACTATED RINGERS 1,000 ML IV SCH; +LIDOCAINE 1% 20 ML VIAL (10MG/ML) FOR IV START INTRADERMA PRN; -MELOXICAM 7.5 MG TAB PO ONE; +MIDAZOLAM 2 MG/2 ML VIAL IV PRN; +ONDANSETRON 4 MG/2 ML VIAL IVP ONE; +Pre Op ABX Message 1 EACH MISC MISCELLANE ONE; +SCOPOLAMINE 1.5MG/72HR PATCH TRANSDERM ONE; -TRANEXAMIC ACID 1,000 MG in SODIUM CHLORIDE 0.9% 100 ML IVPB ONE; -ceFAZolin IN SWFI 2 GM/20 ML SYRINGE IVP ONE
[2019-02-21 06:52] VITALS: TEMP 97.3
[2019-02-21] MEDS ORDERED: ceFAZolin IN SWFI 2 GM/20 ML SYRINGE IVP ONE (07:00)
[2019-02-21] MEDS ORDERED: HEPARIN SODIUM,PORCINE 5,000 UNIT/ML 1 ML VIAL SQ ONE (07:00)
--- NOTE | 2019-02-21 07:00 | P.GSHP ---
History of Present Illness H&P Date: 02/21/19 CHIEF COMPLAINT: Right shoulder lipoma. HISTORY OF PRESENT ILLNESS: Phyllis Zapien is a 53 years-old female who comes in with new problem of a right shoulder lipoma ongoing over 2 years. She works in [employer]. She reports that upon lifting and arm motions, that she has noticed a growth along the right posterior shoulder. It is now causing discomfort and pain. She reports that the only modifying factor, in terms of alleviating her symptoms, includes not really moving the shoulder; however, she still feels its presence and she presents for excision. PAST MEDICAL HISTORY: Please see list. PAST SURGICAL HISTORY: Please see list. MEDICATIONS: Please see list. ALLERGIES: Please see list. SOCIAL HISTORY: No illicit drug use FAMILY HISTORY: No reports of Crohn disease or ulcerative colitis. REVIEW OF ORGAN SYSTEMS: CONSTITUTIONAL: No fevers or chills. No recent weight loss. EYES: Denies any trouble with vision. No glasses. HEENT: No difficulties with hearing. No nosebleeds. No difficulty swallowing. RESPIRATORY: Denies pneumonia. Denies any troubles with breathing or dyspnea on exertion. CARDIOVASCULAR: Denies any chest pain, palpitations, or recent heart attacks. GASTROINTESTINAL: Denies fatty food intolerance. Denies change in bowel habits and gas bloat. Has gastroesophageal reflux disease. GENITOURINARY: Denies any blood in urine or increased urinary frequency. NEUROLOGICAL: Denies any numbness or tingling along the distal extremities. No seizure disorders or headaches. MUSCULOSKELETAL: Has back pain, stiffness or joint arthritis. SKIN: No current skin cancer. No rash. PSYCHIATRIC: Denies current depression or suicidal thoughts. ENDOCRINE: Denies current thyroid disorders. Denies any blood sugar glucose intolerance. HEME/LYMPHATIC: Denies any lumps and bumps around the neck. No recent deep venous thrombosis. ALLERGY/IMMUNOLOGY: No immunoglobulin therapy. No immune deficiencies. BREAST: Denies current breast lumps, pain or nipple discharge. PHYSICAL EXAM: VITAL SIGNS: Stable Skin: A 6 cm deep subcutaneous right shoulder lipoma inferior to the shoulder blade, easily mobile. CONSTITUTIONAL: Well developed and in no acute distress. Vitals reviewed. EYES: Conjuctivae without sclera icterus. Pupils are equally round and reactive to light. Extraocular movements grossly intact. HEAD, EARS, NOSE, THROAT: Moist buccal mucosa. Head is atraumatic, normocephalic. Hears conversational speech. No nasal drainage. Good dentition. NECK: Supple. No JV distention. No thyroidomegaly. RESPIRATORY: Non-labored respirations and equal bilateral excursions. No gross wheezes. CARDIOVASCULAR: Regular rate and rhythm. Extremities without moderate edema. Palpable 2+ radial pulses. ABDOMEN: No hepatomegaly. Soft. Non-tender. Nondistended. LYMPH: No neck lymphadenopathy. No axillary lymphadenopathy. MUSCULOSKELETAL: Gait within normal limits. Range of motion bilateral upper extremities within normal limits. Nail and fingers with good capillary refill. NEUROLOGIC: Cranial nerves I through XII grossly intact. Sensation upper and extremities intact. No focal or lateralizing signs. PSYCH: Appropriate affect. Alert and oriented to person, place and time. Displays appropriate insight. ASSESSMENT: 1. Right shoulder lipoma, 6 cm, subcutaneous. PLAN: 1. I have described excision, including postoperative recovery, for approximately 2 weeks. 2. Dressing and wound care were also described. 3. With the depth, size, and location of the tumor, she is intermediate risk for complications. Past Medical History Past Medical History: GERD/Reflux, Pneumonia, Renal Disease Additional Past Medical History / Comment(s): Pneumonia/intubated and vented, diverticular dx, hiatal hernia, arthritis bilateral knees, nephrolithiasis-pt passed stones on her own, rt shoulder lipoma History of Any Multi-Drug Resistant Organisms: None Reported Past Surgical History: Joint Replacement, Orthopedic Surgery, Tubal Ligation Additional Past Surgical History / Comment(s): R knee arthroscopy, rt knee replacement EGD/colonoscopy Past Anesthesia/Blood Transfusion Reactions: No Reported Reaction Smoking Status: Never smoker - Past Family History Father Family Medical History: COPD, Coronary Artery Disease (CAD) Additional Family Medical History / Comment(s): Father in his mid 60's Mother Family Medical History: Cancer, Diabetes Mellitus Additional Family Medical History / Comment(s): Mother had skin and breast cancer. Medications and Allergies Home Medications Medication Instructions Recorded Confirmed Type Calcium Polycarbophil [Fibercon] 625 mg PO DAILY PRN 03/06/17 02/21/19 History Lansoprazole [Prevacid] 15 mg PO DAILY PRN 03/06/17 02/21/19 History Acetaminophen Tab [Tylenol Tab] 650 mg PO Q4H #30 tablet 03/08/17 02/21/19 Rx Ibuprofen [Motrin] 200 mg PO Q6HR PRN #30 tab 03/08/17 02/18/19 Rx Multivitamins, Thera [Multivitamin 1 tab PO DAILY 01/14/19 02/18/19 History (formulary)] HYDROcodone/APAP 7.5-325MG [Gove 1 - 2 each PO Q6HR PRN #56 tab 01/21/19 02/21/19 Rx 7.5] traMADol HCl [Ultram] 50 mg PO Q6H PRN #28 tab 01/21/19 02/21/19 Rx Allergies Allergy/AdvReac Type Severity Reaction Status Date / Time No Known Allergies Allergy Verified 02/21/19 06:46 Surgical - Exam Vital Signs Temp Pulse Resp BP Pulse Ox 97.3 F L 83 16 118/81 95 02/21/19 06:51 02/21/19 06:51 02/21/19 06:51 02/21/19 06:51 02/21/19 06:51
[2019-02-21] MEDS ORDERED: fentaNYL (PF) 50 MCG/ML 2 ML AMP ONE (07:20)
[2019-02-21] MEDS ORDERED: PROPOFOL 10 MG/ML 20 ML VIAL IV ONE (07:20)
[2019-02-21] MEDS ORDERED: MIDAZOLAM 2 MG/2 ML VIAL ONE (07:20)
[2019-02-21] MEDS ORDERED: LIDOCAINE 1% INJ 10MG/ML (20 ML MDV) ONE (07:20)
[2019-02-21] MEDS ORDERED: ePHEDrine SULFATE/0.9% NACL/PF 50 MG/5 ML SYRINGE IV ONE (07:20)
[2019-02-21] MEDS ORDERED: BUPIVACAIN-EPI 0.25%-1:200,000 30 ML VIAL SQ ONE (08:06)
--- NOTE | 2019-02-21 08:30 | P.OP ---
Date of Procedure: 02/21/19 Description of Procedure: SURGEON: BRITTNI NGUYEN MD FLATTENING PRESS OPERATOR: None. PREOPERATIVE DIAGNOSES: 1. Right upper back/shoulder tumor POSTOPERATIVE DIAGNOSES: 1. Deep subcutaneous right upper back/shoulder tumor, 4 cm PROCEDURES PERFORMED: 1. Excision of deep subfascial right upper back/shoulder mass, 4 cm 2. Complex four layer closure right upper back/shoulder incision, 8-cm Anesthesia: GETA, local Estimated Blood Loss (ml): 2 Pathology: other (back mass) Condition: stable Disposition: same day COMPLICATIONS: None. INDICATIONS: The patient is a 53-year-old female who presents with symptomatic right upper back/shoulder tumor. Benefits and risks of surgical intervention were described including bleeding, infection. Informed consent was obtained. DESCRIPTION OR PROCEDURE: In the preoperative area, the area of concern was marked with indelible marker. Patient was brought into the operating room. After general induction, she was positioned in left lateral decubitus position. The back was prepped and draped in a standard sterile fashion with ChloraPrep. Timeout protocol was confirmed with the surgical team regarding the patient's name, procedure to be performed including preoperative medications. DVT prophylaxis was confirmed. A field block was placed of the left lower back. An incision using #15 blade was made along the marking into the dermis and subcutaneous tissue. Electro-Bovie cautery was used to enter deep into the subcutaneous tissue where a fatty tumor was removed of 4 cm in size. 0 Vicryl for the deep subcutaneous tissue followed by 3-0 Vicryl was placed in interrupted fashion. 4-0 Monocryl in a running subcuticular fashion was placed along the dermis. The skin was cleansed and Exofin tape with liquid was applied for a four layer closure. The incision was covered with Optifoam dressing. Attention was now brought to the right upper back for the large 15 cm tumor. Local anesthetic was placed. At the end of the procedure, needle, sponge, and instrument count was verified correct by surgical consultant. The patient tolerated the procedure well. Operative Findings: 1. Excision of deep subcutaneous lipoma, 4 cm right upper back/shoulder girdle removed Plan - Discharge Summary Discharge Rx Participant: Yes New Discharge Prescriptions: Continue Lansoprazole [Prevacid] 15 mg PO DAILY PRN PRN Reason: GERD Calcium Polycarbophil [Fibercon] 625 mg PO DAILY PRN PRN Reason: Constipation Acetaminophen Tab [Tylenol] 650 mg PO Q4H #30 tablet Multivitamins, Thera [Multivitamin (formulary)] 1 tab PO DAILY HYDROcodone/APAP 7.5-325MG [[place] 7.5-325] 1 - 2 each PO Q6HR PRN #56 tab PRN Reason: Pain traMADol HCl [Ultram] 50 mg PO Q6H PRN #28 tab PRN Reason: Pain Discontinued Ibuprofen [Motrin] 200 mg PO Q6HR PRN #30 tab PRN Reason: Mild To Moderate Pain Discharge Medication List Calcium Polycarbophil [Fibercon] 625 mg PO DAILY PRN 03/06/17 [History] Lansoprazole [Prevacid] 15 mg PO DAILY PRN 03/06/17 [History] Acetaminophen Tab [Tylenol] 650 mg PO Q4H #30 tablet 03/08/17 [Rx] Multivitamins, Thera [Multivitamin (formulary)] 1 tab PO DAILY 01/14/19 [History] HYDROcodone/APAP 7.5-325MG [[place] 7.5-325] 1 - 2 each PO Q6HR PRN #56 tab 01/21/19 [Rx] traMADol HCl [Ultram] 50 mg PO Q6H PRN #28 tab 01/21/19 [Rx] Follow up Appointment(s)/Referral(s): Brittni Nguyen MD [STAFF PHYSICIAN] - 02/26/19 Patient Instructions/Handouts: Excision of Skin Lesion (DC) Activity/Diet/Wound Care/Special Instructions: May shower. No bath tub soaks. Do not elevate right arm over shoulder. No lifting over 5 pounds for 2 weeks right arm. DO NOT REMOVE DRESSING UNTIL Monday02/20/19 to be done in office Discharge Disposition: HOME SELF-CARE
[2019-02-21] MEDS ORDERED: MEPERIDINE 50 MG/ML SYRINGE IVP ONE (08:35)
[2019-02-21 09:02] VITALS: RESP 16
[2019-02-21 09:23] VITALS: BP 132/82; PULSE 87
== END 2019-02-21 09:34 | disposition home or self-care (01) ==
LOC: OR 06:31
PROVIDERS: ATTEND Surgery Plastic and Reconstructive Surgery
DX: D17.1 Benign lipomatous neoplasm of skin and subcutaneous tissue of trunk (principal); K21.9 Gastro-esophageal reflux disease without esophagitis; K44.9 Diaphragmatic hernia without obstruction or gangrene; K59.00 Constipation, unspecified; M17.12 Unilateral primary osteoarthritis, left knee; Z96.651 Presence of right artificial knee joint; Z79.899 Other long term (current) drug therapy; Z79.891 Long term (current) use of opiate analgesic; Z98.51 Tubal ligation status; Z87.442 Personal history of urinary calculi; Z87.01 Personal history of pneumonia (recurrent); Z80.3 Family history of malignant neoplasm of breast; Z80.8 Family history of malignant neoplasm of other organs or systems; Z83.3 Family history of diabetes mellitus; Z82.49 Family history of ischemic heart disease and other diseases of the circulatory system; Z83.6 Family history of other diseases of the respiratory system
CPT/HCPCS: 21931; 88304; J2250; J1644; J1100; J2175; J2405; J2001; J3010; J2704

== ENCOUNTER → 2020-10-16 | Outpatient (CLI) | payer BC ==
[2020-10-16 13:10] LABS: Basophils # (A) 0.1 k/uL (0-0.2); Basophils % (A) 1 %; Eosinophils # (A) 0.1 k/uL (0-0.7); Eosinophils % (A) 3 %; HCT 40.8 % (34.0-46.0); HGB 13.7 gm/dL (11.4-16.0); Lymphocytes # (A) 1.3 k/uL (1.0-4.8); Lymphocytes % (A) 27 %; MCH 28.2 pg (25.0-35.0); MCHC 33.6 g/dL (31.0-37.0); Mean Platelet Volume 7.9; Monocytes # (A) 0.3 k/uL (0-1.0); Monocytes % (A) 7 %; Neutrophils # (A) 3.1 k/uL (1.3-7.7); Neutrophils % (A) 61 %; Platelet Count 322 k/uL (150-450); RBC 4.86 m/uL (3.80-5.40); RDW 13.1 % (11.5-15.5); WBC 5.1 k/uL (3.8-10.6)
[2020-10-16 13:27] LABS: Prothrombin Time 10.7 sec (9.0-12.0)
[2020-10-16 13:32] LABS: Potassium 4.7 mmol/L (3.5-5.1)
== END | disposition home or self-care (01) ==
LOC: LABPAT 11:16
PROVIDERS: ATTEND Orthopaedic Surgery
DX: Z01.810 Encounter for preprocedural cardiovascular examination (principal); Z01.812 Encounter for preprocedural laboratory examination; Z22.322 Carrier or suspected carrier of Methicillin resistant Staphylococcus aureus; M17.12 Unilateral primary osteoarthritis, left knee
CPT/HCPCS: 36415; 80051; 85025; 85610; 87070; 93005

== ENCOUNTER 2020-11-09 08:46 | Day surgery (SDC) | payer BC ==
[2020-10-29 16:10] VITALS: BMI 35.2
--- NOTE | 2020-11-08 13:18 | HP ---
HISTORY AND PHYSICAL REASON FOR ADMISSION: Surgery scheduled for 11/09/2020 HISTORY OF PRESENT ILLNESS: Phylils Zapien is a 55-year-old patient seen with symptomatic left knee osteoarthritis. We discussed options for treatment. She elected to proceed with left total knee arthroplasty. Consent was obtained. PAST MEDICAL HISTORY: Gastroesophageal reflux disease. PAST SURGICAL HISTORY: Appendectomy, right total knee arthroplasty. MEDICATIONS: Prevacid, ibuprofen. ALLERGIES: NONE. SOCIAL HISTORY: She denies tobacco use. PHYSICAL EXAMINATION: Evaluation of the left knee: Range of motion is -2/3 to 115. Tenderness medial joint line. Crepitus medial and patellofemoral compartments with range of motion. Pain with patellofemoral compression. Ligaments stable. Hip rotation without pain. Distal neurovascular exam intact. RADIOGRAPHS: Left knee radiographs revealed severe osteoarthritic changes. IMPRESSION: 1. Left knee osteoarthritis. 2. Gastroesophageal reflux disease. PLAN: Left total knee arthroplasty. Surgery scheduled for 11/09/2020. MMODL / IJN: [id number] /
[~2020-11-09 08:46] MED LIST changes: +ACETAMINOPHEN TAB 500 MG TAB PO PRN; -DEXAMETHASONE SOD PHOSPHATE 10 MG/ML 1 ML VIAL IV ONE; -HYDROmorphone 0.5 MG/0.5 ML SYRINGE IVP PRN; +LIDOCAINE 1% (10MG/ML) FOR IV START INTRADERMA PRN; -LIDOCAINE 1% 20 ML VIAL (10MG/ML) FOR IV START INTRADERMA PRN; +MELOXICAM 7.5 MG TAB PO PRN; -MIDAZOLAM 2 MG/2 ML VIAL IV PRN; -ONDANSETRON 4 MG/2 ML VIAL IVP ONE; -Pre Op ABX Message 1 EACH MISC MISCELLANE ONE; +ROPIVACAINE/EPI/CLONIDINE/KET 50 ML SYRINGE MISCELLANE PRN; +TRANEXAMIC ACID 1,000 MG in SODIUM CHLORIDE 0.9% 100 ML IVPB PRN
[2020-11-09] MEDS ORDERED: ONDANSETRON 4 MG/2 ML VIAL ONE (09:21)
[2020-11-09] MEDS ORDERED: DEXAMETHASONE SOD PHOSPHATE 4 MG/ML 1 ML VIAL IV ONE (09:50)
[2020-11-09] MEDS ORDERED: MIDAZOLAM 2 MG/2 ML VIAL IV ONE (09:53)
[2020-11-09] MEDS ORDERED: fentaNYL (PF) 50 MCG/ML 2 ML AMP IV ONE (09:53)
[2020-11-09] MEDS ORDERED: HYDROmorphone (PF) 1 MG/ML ONE (10:10)
[2020-11-09] MEDS ORDERED: ROCURONIUM 10 MG/ML (5 ML VIAL) IV ONE (10:10)
[2020-11-09] MEDS ORDERED: GLYCOPYRROLATE 0.2 MG/ML 2 ML VIAL ONE (10:10)
[2020-11-09] MEDS ORDERED: fentaNYL (PF) 50 MCG/ML 2 ML AMP ONE (10:10)
[2020-11-09] MEDS ORDERED: LIDOCAINE 1% INJ 10MG/ML (20 ML MDV) ONE (10:10)
[2020-11-09] MEDS ORDERED: PROPOFOL 10 MG/ML 20 ML VIAL IV ONE (10:10)
[2020-11-09] MEDS ORDERED: NEOSTIGMINE 1 MG/ML 10 ML VIAL ONE (10:10)
[2020-11-09] MEDS ORDERED: MIDAZOLAM 2 MG/2 ML VIAL ONE (10:10)
[2020-11-09] MEDS ORDERED: SUCCINYLCHOLINE CHLORIDE VIAL 200 MG/10 ML VIAL IV ONE (10:10)
[2020-11-09] MEDS ORDERED: ceFAZolin 3,000 MG in SODIUM CHLORIDE 0.9% IRRIGATIO 3,000 ML IRRIGATION ONE (10:42)
[2020-11-09] MEDS ORDERED: LACTATED RINGERS 1,000 ML IV ONE ×2 (11:18→11:53)
[2020-11-09] MEDS ORDERED: HYDROmorphone 0.5 MG/0.5 ML SYRINGE IVP PRN (11:53)
[2020-11-09] MEDS ORDERED: HYDROcodone/APAP 7.5-325MG 1 EACH TAB PO PRN (11:53)
[2020-11-09] MEDS ORDERED: NALOXONE 0.4 MG/ML 1 ML VIAL IV PRN (11:53)
[2020-11-09] MEDS ORDERED: HYDROmorphone 1 MG/ML 1 ML SYRINGE IVP PRN (11:53)
[2020-11-09] MEDS ORDERED: HYDROmorphone 0.2 MG/1 ML SYRINGE IVP PRN (11:53)
[2020-11-09] MEDS ORDERED: HYDROcodone/APAP 5-325MG 1 EACH TAB PO PRN (11:53)
[2020-11-09] MEDS ORDERED: ONDANSETRON 4 MG/2 ML VIAL IVP PRN (11:53)
--- NOTE | 2020-11-09 11:53 | P.OP ---
Date of Procedure: 11/09/20 Preoperative Diagnosis: Left knee osteoarthritis Postoperative Diagnosis: Left knee osteoarthritis Procedure(s) Performed: Left total knee arthroplasty Implants: 1. Depuy attune size 5 left cruciate retaining cemented femur 2. Depuy attune size 5 fixed bearing cemented tibial baseplate 3. Depuy attune size 5 fixed bearing cruciate retaining 10 mm polyethylene tibial insert 4. Depuy attune 38 mm all polyethylene cemented patella Anesthesia: GETA, regional (Adductor canal catheter), local Surgeon: Siva Fountain Clinical Appeals Reviewer #1: Jose Alvarez Estimated Blood Loss (ml): 40 Pathology: other (Bone) Condition: stable Disposition: PACU Indications for Procedure: 55-year-old patient seen with symptomatic left knee osteoarthritis. After treatment options were discussed, she elected to proceed with arthroscopy. Operative Findings: see description of procedure Description of Procedure: Patient was taken to the operative suite after having an adductor canal catheter placed by the department of anesthesia. Patient underwent a general anesthetic by the department of anesthesia. Patient was given preoperative IV intake antibiotics and TXA. A well-padded tourniquet was placed about the left lower extremity. The lower extremity was then prepped and draped in the normal sterile orthopedic fashion. The extremity was elevated, a tourniquet was insufflated to 300. A standard anterior incision was made sharply through skin. Dissection was taken down through the subcutaneous soft tissues down to the extensor mechanism. A medial arthrotomy was performed, patella was everted and knee was flexed. There was advanced osteoarthritis noted. I introduced my distal intramedullary femoral drill. I then introduced the distal femoral cutting jig. Torrey HUNTER secured the cutting jig with 2 pins. I held retractors in position while Torrey HUNTER performed the distal femoral resection through the guide area we now removed her distal femoral cutting guide. We now placed our 4-in-1 femoral cutting block and positioned and it was secured with 2 pins by Torrey HUNTER while I held the block in position. The distal femoral finishing was now completed. A proximal tibial cutting guide was positioned. I held the guide in the appropriate position with both hands well Torrey HUNTER inserted stabilizing pins into the guide. Proximal tibial cut was made. We now placed a trial femoral component into position, along with an appropriate size tibial tray and insert. We now took the knee through range of motion and had full extension good flexion and good overall soft tissue balance noted. The patella was everted and stabilized with 2 towel clips held by Torrey HUNTER while I performed a flush with patellar quad tendon utilizing a fresh sawblade. We templated the patella, appropriate drill holes were made. An appropriate trial patella was positioned, knee was taken through full range of motion with the patella tracking very nicely. The trial patella was removed. Drill holes were made through the femoral component. All trial components were removed after marking off the appropriate rotation of the tibia. Retractors were now positioned along the proximal tibia. An appropriate keel punch was made with the appropriate size tibial guide by myself on Torrey HUNTER assisted by holding retractors. At this point appropriate size implants were chosen and opened. The joint was irrigated copiously with pulse lavage mechanical irrigation. The posterior capsule was infiltrated with local analgesic. The wound was irrigated with pulse lavage mechanical irrigation. We mixed antibiotic methylmethacrylate. We placed the knee into flexion. We placed multiple retractors assisted by Torrey HUNTER to expose the proximal tibia. Once the methyl methacrylate was ready, the tibial component was cemented into place removing any excess methylmethacrylate form by both myself and Torrey HUNTER. The femoral component was cemented into place removing the removing any excess methylmethacrylate performed by both myself and Torrey HUNTER. We then inserted the appropriate size polyethylene tibial insert. We made sure that it was locked into position. We took the knee into full extension, and then back in a flexion making sure we had removed any excess methylmethacrylate. The patellar component was then cemented down and secured with clamp. Excess methylmethacrylate removed. We kept the knee in full extension, patellar clamp in position until methylmethacrylate had hardened. Once it had hardened the patellar clamp was removed. The knee was taken through full range of motion. The patella tracked nicely. There was good soft tissue balancing. The tourniquet was now released. Additional hemostasis was achieved via abraham ctrocautery. A second gram of TXA was given. The wound again was irrigated with pulse lavage mechanical irrigation. The superficial soft tissues were infiltrated local analgesic. The extensor mechanism was repaired with #2 Ethibond. We checked the repair with range of motion and it was stable. The subcutaneous soft tissues were repaired with Vicryl in layers. The skin was approximated with pernio/Dermabond. Sterile dressings were applied followed by loose web roll and Jan bandage. The patient was transferred to a bed, and taken to recovery in stable and satisfactory condition. Torrey HUNTER assisted with this complex procedure.
[2020-11-09] MEDS ORDERED: ROPIVACAINE 0.2%-NS ON-Q PUMP 1,090 MG, EMPTY PAIN BALL 1 EACH MISCELLANE PRN (12:28)
--- NOTE | 2020-11-09 12:29 | P.ANPRN ---
Procedure Note - Anesthesia - Nerve Block Performed Left Adductor Canal Infusion Time Out Performed: Yes (1212) Date of Procedure: 11/09/20 Procedure Start Time: 12:13 Procedure Stop Time: 12:19 Location of Patient: PreOp Indication: Acute Post-Operative Pain, Requested by Surgeon Specifically requested for management of pain by DrTaryn: Siva Fountain Sedation Type: Sedate with meaningful contact maintained Preparation: Sterile Prep Position: Supine Catheter Depth at Skin (cm): 8 Catheter: Indwelling Needle Types: Pajunk Needle Gauge: 21 Ultrasound used to visualize needle placement: Yes Ultrasound used to observe medication spread: Yes Injectate: 0.5% Ropivacaine (see comment for volume) (20cc) Blood Aspirated: No Pain Paresthesia on Injection Noted: No Resistance on Injection: Normal Image Stored and Saved: Yes Events: Uneventful and Well Tolerated
[2020-11-09] MEDS: MEPERIDINE 50 MG/ML SYRINGE IVP ONE ×2 (12:30→12:37)
[2020-11-09 12:34] VITALS: TEMP 97
[2020-11-09] MEDS ORDERED: LIDOCAINE 2% (PF) 20 MG/ML 5 ML VIAL INTRAARTIC ONE (12:34)
--- NOTE | 2020-11-09 12:42 | XR ---
EXAMINATION TYPE: XR knee limited LT DATE OF EXAM: 11/09/2020 COMPARISON: None HISTORY: Postop evaluation TECHNIQUE: Three-view left knee FINDINGS: Tibial and femoral components of in place. Postsurgical soft tissue changes. No acute fract ures are evident. IMPRESSION: 1. No acute fractures post knee replacement
[2020-11-09] MEDS: HYDROmorphone 0.5 MG/0.5 ML SYRINGE IVP PRN ×2 (12:45→12:56)
[2020-11-09 12:53] VITALS: RESP 16
[2020-11-09] MEDS ORDERED: diphenhydrAMINE 50 MG/ML 1 ML VIAL IVP ONE (13:22)
[2020-11-09] MEDS ORDERED: HYDROcodone/APAP 5-325MG 1 EACH TAB PO ONE (13:48)
[2020-11-09 15:55] VITALS: BP 122/76; PULSE 85
== END 2020-11-09 16:15 | disposition home health service (06) ==
LOC: OR 08:46
PROVIDERS: ATTEND Orthopaedic Surgery
DX: M17.12 Unilateral primary osteoarthritis, left knee (principal); K21.9 Gastro-esophageal reflux disease without esophagitis; K44.9 Diaphragmatic hernia without obstruction or gangrene; Z90.89 Acquired absence of other organs; Z96.651 Presence of right artificial knee joint; Z82.49 Family history of ischemic heart disease and other diseases of the circulatory system; R93.1 Abnormal findings on diagnostic imaging of heart and coronary circulation; R94.31 Abnormal electrocardiogram [ECG] [EKG]; Z79.1 Long term (current) use of non-steroidal anti-inflammatories (NSAID); Z79.899 Other long term (current) drug therapy
CPT/HCPCS: 27447; 97161; 64448; 76942; 88300; 73560; C1776; C1713; J2250; J0330; J1200; J1100; J2710; J2175; J0690 ×2; J2405; J2001 ×2; J3010; J1170 ×2; J2704; J2795

== ENCOUNTER 2021-01-18 11:34 | Day surgery (SDC) | payer BC ==
[2021-01-13 14:34] VITALS: BMI 35.2
--- NOTE | 2021-01-17 12:06 | HP ---
HISTORY AND PHYSICAL REASON FOR ADMISSION: Surgery scheduled for 01/18/2021 HISTORY OF PRESENT ILLNESS: Phyllis Zapien is a 55-year-old patient seen with left knee adhesions with previous history of total knee arthroplasty. I discussed manipulation under anesthesia of left knee with steroid injection. She was agreeable. Consent was obtained. PAST MEDICAL HISTORY: Noncontributory. SURGICAL HISTORY: Appendectomy and total knee arthroplasty. DAILY MEDICATIONS: Ibuprofen, [place]. ALLERGIES: None. SOCIAL HISTORY: She denies tobacco use. PHYSICAL EXAMINATION: Evaluation of the left knee, she has a well-healed anterior incision. Range of motion is -3/4 to 90. Her ligaments are stable. She has some quadriceps weakness. Homans and Edwin negative. Distal neurovascular exam is intact. RADIOGRAPHS: Left knee radiographs reveal stable appearing total knee arthroplasty. IMPRESSION: 1. Left knee adhesions. 2. History of left total knee arthroplasty. PLAN: Manipulation under anesthesia left knee with steroid injection. Surgery scheduled for 01/18/2021. MMODL / IJN: [id number] /
[~2021-01-18 11:34] MED LIST changes: -ACETAMINOPHEN TAB 500 MG TAB PO PRN; -MELOXICAM 7.5 MG TAB PO PRN; +Pre Op ABX Message 1 EACH MISC MISCELLANE ONE; -ROPIVACAINE/EPI/CLONIDINE/KET 50 ML SYRINGE MISCELLANE PRN; -SCOPOLAMINE 1.5MG/72HR PATCH TRANSDERM ONE; -TRANEXAMIC ACID 1,000 MG in SODIUM CHLORIDE 0.9% 100 ML IVPB PRN
[2021-01-18 11:58] VITALS: TEMP 98.4
[2021-01-18] MEDS ORDERED: PROPOFOL 10 MG/ML 20 ML VIAL IV ONE (12:08)
[2021-01-18] MEDS ORDERED: ONDANSETRON 4 MG/2 ML VIAL IVP ONE ×2 (12:12→12:20)
--- NOTE | 2021-01-18 12:19 | P.OP ---
Date of Procedure: 01/18/21 Preoperative Diagnosis: Left knee adhesions Postoperative Diagnosis: Left knee adhesions Procedure(s) Performed: Manipulation under anesthesia left knee with steroid injection Anesthesia: MAC, local Surgeon: Siva Fountain Estimated Blood Loss (ml): 0 Pathology: none sent Condition: stable Disposition: PACU Indications for Procedure: 55-year-old patient seen with persistent left knee adhesions after previously having undergone total knee arthroplasty. After having treatment options discussed, she elected to proceed with manipulation under anesthesia left knee with steroid injection Operative Findings: see description of procedure Description of Procedure: Patient was taken to monitored anesthesia area. Patient received preoperative IV antibiotics. Patient underwent IV sedation by the department of anesthesia. Once sufficient anesthesia was noted a manipulation of the left knee was performed achieving full range of motion with audible tearing of the adhesions. The superior lateral aspect of the knee was now prepped and draped in the normal sterile orthopedic fashion. I injected a solution of 3 mL quarter percent plain Marcaine and 1 mL Depo-Medrol intra-articularly sterile technique. I applied a sterile Band-Aid. I took the knee through range of motion. The patient was awakened having tolerated the procedure well.
[2021-01-18] MEDS ORDERED: HYDROmorphone 0.5 MG/0.5 ML SYRINGE IVP ONE ×2 (12:30→12:55)
[2021-01-18] MEDS ORDERED: KETOROLAC 15 MG/ML 1 ML VIAL IVP ONE (12:32)
[2021-01-18 12:55] VITALS: RESP 16
[2021-01-18 13:50] VITALS: BP 129/86; PULSE 66
== END 2021-01-18 13:54 | disposition home or self-care (01) ==
LOC: OR 11:34
PROVIDERS: ATTEND Orthopaedic Surgery
DX: M23.8X2 Other internal derangements of left knee (principal); Z96.652 Presence of left artificial knee joint; K21.9 Gastro-esophageal reflux disease without esophagitis; Z98.51 Tubal ligation status; Z79.1 Long term (current) use of non-steroidal anti-inflammatories (NSAID); Z79.891 Long term (current) use of opiate analgesic
CPT/HCPCS: 27570; 20610; J2405; J1885; J2704; J1170

== ENCOUNTER → 2023-09-26 | Outpatient (CLI) | payer BC ==
--- NOTE | 2023-10-01 14:35 | MM ---
Reason for Exam: Screening (asymptomatic). Last mammogram was performed 4 year(s) and 10 month(s) ago. Patient History: Menarche at age 11. First Full-Term at age 18. Postmenopausal. Patient has history of breast feeding. Mother had breast cancer, age 68. Risk Values: Michelle 5 year model risk: 2.7%. NCI Lifetime model risk: 13.6%. Prior Study Comparison: 06/16/2015 Screening Mammogram, [facility]. 10/18/2016 Bilateral Screening Mammogram, [facility]. 11/29/2018 Bilateral Screening Mammogram, [facility]. Tissue Density: There are scattered fibroglandular densities. Findings: Analyzed By CAD. The pattern is symmetrical and stable. No significant interval changes. Small focal asymmetry within the mid left breast is smaller than the comparison. No suspicious groups of microcalcifications, spiculated or lobular masses, architectural distortion or other secondary signs of malignancy are mammographically apparent. Overall Assessment: Benign, BI-RAD 2 Management: Screening Mammogram of both breasts in 1 year. A negative mammogram report should not preclude additional follow up of suspicious palpable abnormalities. Patient should continue monthly self breast exam. A clinical breast exam by your physician is recommended on an annual basis and results should be correlated with mammographic findings. Electronically signed and approved by: [place] Dan D.O. Radiologis
== END | disposition home or self-care (01) ==
LOC: RADMAMWWP 15:46
PROVIDERS: ATTEND Family Medicine
DX: Z12.31 Encounter for screening mammogram for malignant neoplasm of breast (principal); Z80.3 Family history of malignant neoplasm of breast; Z78.0 Asymptomatic menopausal state
CPT/HCPCS: 77063; 77067

== ENCOUNTER → 2024-09-13 | Day surgery (SDC) | payer BC ==
[~2024-09-13] MED LIST changes: -LACTATED RINGERS 1,000 ML IV SCH; -LIDOCAINE 1% (10MG/ML) FOR IV START INTRADERMA PRN; +LIDOCAINE 1% INJ 10MG/ML (20 ML MDV) ONE; +PROPOFOL 10 MG/ML 20 ML VIAL IV ONE; -Pre Op ABX Message 1 EACH MISC MISCELLANE ONE
[2024-09-13 09:41] VITALS: TEMP 97
[2024-09-13] MEDS: IV FLUID CONTINUATION 1,000 ML IV ONE ×2 (09:43→10:19)
[2024-09-13] MEDS: LACTATED RINGERS 1,000 ML IV SCH (09:44)
[2024-09-13 09:57] LABS: Glucose,Whole Blood 93 mg/dL (70-110)
--- NOTE | 2024-09-13 10:43 | P.PCN ---
Date of Procedure: 09/13/24 Procedure(s) Performed: BRIEF HISTORY: Patient is a 59-year-old pleasant white female scheduled for an elective colonoscopy as a part of screening for colon cancer. Last colonoscopy was more than 10 years ago. PROCEDURE PERFORMED: Colonoscopy with snare polypectomy. PREOPERATIVE DIAGNOSIS: Screening for colon cancer. IV sedation per Anesthesia. PROCEDURE: After informed consent was obtained, the patient, was brought into the endoscopy unit. IV sedation was administered by Anesthesia under continuous monitoring. Digital rectal examination was normal. Initially the Olympus CF-160 flexible video colonoscope was then inserted in the rectum, gradually advanced into the cecum without any difficulty. Careful examination was performed as the scope was gradually being withdrawn. Ileocecal valve and the appendiceal orifice were visualized and appeared normal. Prep was excellent. Mucosa of the cecum, ascending colon, transverse colon, descending colon, sigmoid colon, and rectum appeared normal. In the rectum there was a 1.3 cm broad-based polyp removed by snare polypectomy. Moderate sigmoid diverticulosis seen. Retroflexion was performed in the rectum and no lesions were seen. The patient tolerated the procedure well. IMPRESSION: 1.3 cm mid rectal polyp status post hot snare polypectomy Moderate sigmoid diverticulosis RECOMMENDATIONS: Findings of this examination were discussed with the patient as well as her family. She was advised to follow-up with the biopsy results. If the biopsy reveals adenoma she can have repeat colonoscopy in 3 years..
[2024-09-13 11:06] VITALS: BP 119/78; PULSE 60; RESP 14
== END ==
LOC: ORWHC2ENDO 08:39
PROVIDERS: ATTEND Internal Medicine Gastroenterology
DX: Z12.11 Encounter for screening for malignant neoplasm of colon (principal); D12.8 Benign neoplasm of rectum; K57.30 Diverticulosis of large intestine without perforation or abscess without bleeding; E11.9 Type 2 diabetes mellitus without complications; E78.5 Hyperlipidemia, unspecified; K21.9 Gastro-esophageal reflux disease without esophagitis; K44.9 Diaphragmatic hernia without obstruction or gangrene; Z79.899 Other long term (current) drug therapy
CPT/HCPCS: 88305; 45385; J2003; J2704

== ENCOUNTER → 2024-10-22 | Outpatient (CLI) | payer BC ==
--- NOTE | 2024-10-23 07:43 | MM ---
Reason for Exam: Screening (asymptomatic). Last mammogram was performed 1 year(s) and 1 month(s) ago. Patient History: Menarche at age 11. First Full-Term at age 18. Postmenopausal. Patient has history of breast feeding. Mother had breast cancer, age 68. Risk Values: Michelle 5 year model risk: 2.8%. NCI Lifetime model risk: 13.2%. Prior Study Comparison: 10/18/2016 Bilateral Screening Mammogram, [facility]. 11/29/2018 Bilateral Screening Mammogram, [facility]. 09/26/2023 Bilateral MG 3D screening mammo w/cad, [facility]. Tissue Density: There are scattered areas of fibroglandular density. Findings: Analyzed By CAD. Stable 8 mm circumscribed mass left breast centrally from prior mammograms. Benign appearing vascular calcification left breast is redemonstrated. There is no suspicious group of microcalcifications or new suspicious mass in either breast. Overall Assessment: Benign, BI-RAD 2 Management: Screening Mammogram of both breasts in 1 year. . Patient should continue monthly self-breast exams. A clinical breast exam by your physician is recommended on an annual basis. This exam should not preclude additional follow-up of suspicious palpable abnormalities. Note on Michelle scores and lifetime risk: 1. A Michelle score greater than 3% is considered moderate risk. If this is the case, consider specialist referral to assess eligibility for a risk reducing agent. 2. If overall lifetime risk for the development of breast cancer is 20% or higher, the patient may qualify for future screening with alternating mammogram and breast MRI. [facility], , 10/23/2024 7:39 AM. Electronically signed and approved by: Dylan Jacobs M.D.
== END | disposition home or self-care (01) ==
LOC: RADMAMWWP 16:39
PROVIDERS: ATTEND Family Medicine
DX: Z12.31 Encounter for screening mammogram for malignant neoplasm of breast (principal); R92.323 Mammographic fibroglandular density, bilateral breasts; Z78.0 Asymptomatic menopausal state; Z80.3 Family history of malignant neoplasm of breast
CPT/HCPCS: 77063; 77067

== ENCOUNTER → 2025-01-20 | Outpatient (CLI) | payer BC ==
--- NOTE | 2025-01-20 14:18 | US ---
EXAMINATION TYPE: US bladder DATE OF EXAM: 01/20/2025 COMPARISON: CT abdomen and pelvis 03/06/2017 CLINICAL INDICATION: Female, 59 years old with history of N39.31 URGE INCONTINENCE; Frequent UTI's TECHNIQUE: Grayscale and color doppler imaging of the bilateral kidneys and urinary bladder. FINDINGS: EXAM MEASUREMENTS: Post Void Residual Volume: 7.6 mL Color Doppler performed to assess ureteral jets. Bilateral Jets seen: yes Normal Post Void Residual (less than 50ml): yes Anechoic appearance of the urinary bladder without wall thickening identified. IMPRESSION: Unremarkable appearance of the urinary bladder with normal postvoid residual. [facility], , 01/20/2025 2:16 PM
== END | disposition home or self-care (01) ==
LOC: RADUSWWP 13:49
PROVIDERS: ATTEND Family Medicine
DX: N39.41 Urge incontinence (principal)
CPT/HCPCS: 76857